=== PATIENT | female | born 2000 | race Caucasian/White ===

== ENCOUNTER 2024-06-22 12:12 | Emergency (ER) | payer SELFPAY ==
[2024-06-22 19:51] LABS: Specific Gravity 1.025 (1.005-1.030)
--- NOTE | 2024-06-22 19:53 | EDPHYS ---
Physician Documentation [facility] Name: Urmila Guerrero Age: 24 yrs Sex: Female : 2000 Arrival Date: 06/22/2024 Time: 12:12 Bed 8 Private MD: ED Physician Paul Garcia HPI: 06/22 14:30 This 24 yrs old White Female presents to ER via Ambulatory with complaints of Urinary cp Problem. 14:30 The patient presents with vaginal discharge, odor. cp 14:30 Onset: The symptoms/episode began/occurred 1 week(s) ago. Associated signs and cp symptoms: Pertinent negatives: fever, hematuria, urinary frequency, vaginal bleeding. Severity of symptoms: in the emergency department the symptoms are unchanged, despite home interventions. 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 - Infectious Disease History:: Denies. - Social history:: Smoking status: Patient denies any tobacco usage or history of. ROS: 14:35 Constitutional: Negative for body aches, chills, fever, poor PO intake, cp 14:35 Eyes: Negative for injury, pain, redness, and discharge, cp 14:35 ENT: Negative for drainage from ear(s), ear pain, sore throat, difficulty swallowing, difficulty handling secretions, 14:35 Respiratory: Negative for cough, shortness of breath, wheezing, 14:35 Abdomen/GI: Negative for abdominal pain, vomiting, diarrhea, constipation, 14:35 : Positive for vaginal discharge, Negative for urinary symptoms, vaginal bleeding, 14:35 Skin: Negative for rash, 14:35 Neuro: Negative for altered mental status, weakness, 14:35 All other systems are negative, Exam: 14:40 Constitutional: The patient appears in no acute distress, alert, awake, non-toxic, well cp developed, well nourished, 14:40 Head/Face: Normocephalic, atraumatic. 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 4 in. ; Pain 0/10; 14:28 Body Mass Index 25.75 (68.04 kg, 162.56 cm) ap3 14:28 Pain Scale: Adult ap3 MDM: 14:20 Medical Screening Exam initiated rn 14:40 Differential diagnosis: dysmenorrhea, ectopic , ovarian cyst, pelvic cp inflammatory disease, urinary tract infection, vaginosis. 15:35 Data reviewed: vital signs, nurses notes, and as a result, I will discharge patient. cp Administered Medications: No medications were administered Disposition Summary: 06/22/24 15:36 Discharge Ordered Notes: Location: Home cp Problem: new cp Symptoms: are unchanged cp Condition: Stable cp Diagnosis - Vaginitis, vulvitis and vulvovaginitis in diseases classified elsewhere cp Followup: cp - With: Private Physician - When: 2 - 3 days - Reason: Recheck today's complaints Discharge Instructions: - Discharge Summary Sheet cp - Vaginitis cp Forms: - Medication Reconciliation Form cp - Antibiotic Education cp - Prescription Opioid Use cp - Patient Portal Instructions cp - Leadership Thank You Letter cp Addendum: 06/25/2024 10:23 Co-signature as Attending Physician, Paul Garcia MD I reviewed the patient's care r n provided by the Advanced Practice Provider and agree with the diagnosis and treatment plan. Signatures: Paul Garcia MD MD rn Page, Corey, PA PA cp Prokisch, Amanda, RN RN ap3 Corrections: (The following items were deleted from the chart) 06/23 00:55 04 14:30 The patient presents with vaginal discharge, cp cp
--- NOTE | 2024-06-22 19:53 | ER ---
Nurse's Notes [facility] Name: Urmila Guerrero Age: 24 yrs Sex: Female : 2000 Arrival Date: 06/22/2024 Time: 12:12 Bed 8 Private MD: Diagnosis: Vaginitis, vulvitis and vulvovaginitis in diseases classified elsewhere Presentation: 06/22 14:28 Chief complaint: Patient states: he has been having vaginal discharge and odor for ap3 approx one week. patient denies any pain at this time. Coronavirus screen: At this time, the client does not indicate any symptoms associated with coronavirus-19. Ebola Screen: No symptoms or risks identified at this time. Initial Sepsis Screen: Does the patient meet any 2 criteria? No. Patient's initial sepsis screen is negative. Does the patient have a suspected source of infection? No. Patient's initial sepsis screen is negative. Risk Assessment: Do you want to hurt yourself or someone else? Patient reports no desire to harm self or others. Onset of symptoms was June 15, 2024. 14:28 Method Of Arrival: Ambulatory ap3 14:28 Acuity: ERNESTINE 4 ap3 Triage Assessment: 14:29 General: Appears in no apparent distress. Behavior is calm, cooperative, appropriate ap3 for age. Pain: Denies pain. Neuro: Level of Consciousness is awake, alert, obeys commands, Oriented to person, place, time, situation. Cardiovascular: Patient's skin is warm and dry. Respiratory: Airway is patent Respiratory effort is even, unlabored, Respiratory pattern is regular, symmetrical. : Reports discharge, from vagina that is. 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 - Infectious Disease History:: Denies. - Social history:: Smoking status: Patient denies any tobacco usage or history of. Screenin:30 [facility] ED Fall Risk Assessment (Adult) History of falling in the last 3 months, ap3 including since admission No falls in past 3 months (0 pts) Confusion or Disorientation No (0 pts) Intoxicated or Sedated No (0 pts) Impaired Gait No (0 pts) Mobility Assist Device Used No (0 pt) Altered Elimination No (0 pt) Score/Fall Risk Level 0 - 2 = Low Risk Oriented to surroundings, Maintained a safe environment, Educated pt \\T\\ family on fall prevention, incl call for assistance when getting out of bed, Assessed \\T\\ reinforced patient's understanding of fall precautions, Hourly rounding (assess needs \\T\\ fall precautionary measures) done, Used ambulatory aids as needed (educated on \\T\\ assisted with). Abuse screen: Denies threats or abuse. Nutritional screening: No deficits noted. Tuberculosis screening: No symptoms or risk factors identified. Assessment: 14:54 General: Appears in no apparent distress. Behavior is calm, cooperative. Pain: Denies ph pain. Neuro: Level of Consciousness is awake, alert, obeys commands, Oriented to person, place, time, situation. Cardiovascular: Capillary refill < 3 seconds in bilateral fingers Patient's skin is warm and dry. Respiratory: Airway is patent Respiratory effort is even, unlabored. GI: No signs and/or symptoms were reported involving the gastrointestinal system. : Reports discharge, malodorous. Derm: Skin is pink, warm \\T\\ dry. 15:37 Reassessment: Patient appears in no apparent distress at this time. Patient and/or ph family updated on plan of care and expected duration. Pain level reassessed. Patient is alert, oriented x 3, equal unlabored respirations, skin warm/dry/pink. Pt states that she cannot stay for pelvic exam, states, " I have to pick my daughter up from school, I'll have to come back up here.". Vital Signs: 14:28 BP 130 / 80; Pulse 83; Resp 16; Temp 99.4; Pulse Ox 100% ; Weight 68.04 kg; Height 5 ap3 ft. 4 in. ; Pain 0/10; 14:28 Body Mass Index 25.75 (68.04 kg, 162.56 cm) ap3 14:28 Pain Scale: Adult ap3 ED Course: 14:19 Patient arrived in ED. al6 14:20 Paul Garcia MD is Attending Physician. rn 14:29 Triage completed. ap3 14:30 Arm band placed on right wrist. ap3 14:32 Alok Decker PA is PHCP. cp 14:54 Urine collected: clean catch specimen. ph 14:55 Patient has correct armband on for positive identification. Bed in low position. Call ph light in reach. Side rails up X 1. Pulse ox on. NIBP on. Door closed. Noise minimized. Warm blanket given. 15:38 No provider procedures requiring assistance completed. Patient did not have IV access ph during this emergency room visit. Administered Medications: No medications were administered Medication: 14:55 VIS not applicable for this client. ph Outcome: 15:36 Discharge ordered by . cp 15:38 Discharged to home ambulatory, ph 15:38 Condition: good 15:38 Discharge instructions given to patient, Instructed on discharge instructions, follow up and referral plans. Demonstrated understanding of instructions, follow-up care, 15:38 Patient left the ED. ph Signatures: Paul Garcia MD MD rn Calderon, Audri, RN RN aa5 Heather Marie RN RN Alok Lemon PA PA cp Prokisch, Amanda, RN RN ap3 Melia Foreman Corrections: (The following items were deleted from the chart) 15:43 14:43 Alexus Cervantes, RN is Primary Nurse. aa5 aa5
[2024-06-22 19:59] LABS: Sqamous Epithelial <5 /HPF (None Seen); Urine Bacteria <20 /HPF (<20); Urine Crystals Unidentified Few /HPF (None Seen); Urine Culture Reflex Order NOT NEEDED; Urine Micro Reflex YN NO BILL MICROSCOPIC; Urine Mucus 1+ /HPF (None Seen); Urine RBC <5 /HPF (None Seen); Urine WBC <5 /HPF (<5)
[2024-06-22 20:00] VITALS: BP 130/80; TEMP 99.4; O2SAT 100
== END 2024-06-22 15:38 | disposition home or self-care (01) ==
LOC: ER 12:12
DX: N89.8 Other specified noninflammatory disorders of vagina (principal); N77.1 Vaginitis, vulvitis and vulvovaginitis in diseases classified elsewhere
CPT/HCPCS: 81015; 81025; 87086; 87088; 99283